=== PATIENT | female | born 1990 | race Two or more races ===

== ENCOUNTER 2017-04-24 14:14 | Emergency (ER) | payer OTHER, MEDICAID ==
[2017-04-24 14:31] LABS: URINE HCG POC HCG NEGATIVE (Negative)
[2017-04-24 14:37] LABS: ADD MAN DIFF? NO
[2017-04-24 14:40] LABS: BASO % 0 % (0-3); EOS # 0.1 x10^3/uL (0.0-0.7); EOS % 1 % (0-3); HEMATOCRIT 37.4 % (36.0-47.0); HEMOGLOBIN 12.5 g/dL (12.0-15.5); LYMPH # 2.8 x10^3/uL (1.0-4.8); LYMPH % 33 % (24-48); MEAN CORPUSCULAR HEMOGLOBIN 28 pg (25-35); MEAN CORPUSCULAR HGB CONC 33 g/dL (31-37); MEAN CORPUSCULAR VOLUME 83 fL (79-100); MONO # 0.6 x10^3/uL (0.0-1.1); MONO % 8 % (0-9); NEUT # 4.9 x10^3uL (1.8-7.7); NEUT % 58 % (31-73); PLATELET COUNT 265 x10^3/uL (140-400); RED CELL DISTRIBUTION WIDTH 13.7 % (11.5-14.5); WHITE BLOOD COUNT 8.5 x10^3/uL (4.0-11.0)
[2017-04-24 14:41] LABS: BILIRUBIN,URINE NEGATIVE (NEG); CLARITY,URINE CLEAR; COLOR,URINE YELLOW; GLUCOSE,URINE NEGATIVE (NEG); NITRITE,URINE NEGATIVE (NEG); PH,URINE 5.5; PROTEIN,URINE NEGATIVE (NEG-TRACE); UROBILINOGEN,URINE 0.2 mg/dL (0.2 mg/dL)
[2017-04-24 14:49] LABS: BACTERIA,URINE FEW /HPF (0-FEW); SQUAMOUS EPITHELIAL CELL,UR MANY /LPF
[2017-04-24 14:50] LABS: ANION GAP 9 (6-14); BLOOD UREA NITROGEN 16 mg/dL (7-20); BUN/CREATININE RATIO 18 (6-20); CALCIUM 8.4 mg/dL (8.5-10.1); CARBON DIOXIDE 28 mmol/L (21-32); CHLORIDE 105 mmol/L (98-107); CREATININE 0.9 mg/dL (0.6-1.0); GFR 74.6; GLUCOSE 121 mg/dL (70-99); POTASSIUM 3.6 mmol/L (3.5-5.1); SODIUM 142 mmol/L (136-145)
[2017-04-24 14:56] LABS: ALBUMIN 3.5 g/dL (3.4-5.0); ALBUMIN/GLOBULIN RATIO 0.9 (1.0-1.7); ALK PHOS 90 U/L (46-116); ALT (SGPT) 31 U/L (14-59); AST (SGOT) 28 U/L (15-37); LIPASE 135 U/L (73-393); TOTAL BILIRUBIN 0.3 mg/dL (0.2-1.0); TOTAL PROTEIN 7.2 g/dL (6.4-8.2)
[2017-04-24] MEDS ORDERED: CONTRAST GIVEN MC ×2 (15:15)
[2017-04-24] MEDS: IOHEXOL 300 MG/ML 100ML VIAL. IV ×2 (15:16)
[2017-04-24] MEDS: ONDANSETRON PF 4 MG/2 ML VIAL. IV ×2 (15:46)
[2017-04-25 13:22] LABS: CHLAMYDIA PROBE Negative (Negative); GC PROBE Negative (Negative)
== END 2017-04-24 16:53 | disposition home or self-care (01) ==
LOC: ER 14:14
DX: N20.1 Calculus of ureter (principal)
CPT/HCPCS: 36415; 74177; 76830; 76856; 80053; 81001; 81025; 83690; 85025; 87086; 87491; 87591; 96374; 99285-25; J2405; Q0111; Q9967

== ENCOUNTER 2017-10-23 16:19 | Emergency (ER) | payer OTHER ==
[~2017-10-23] VITALS: Ht 157.5 cm; Wt 56.7 kg
[~2017-10-23 16:19] MED LIST: IBUP-1060 PO; ONDA4TAB10 PO; OXYC-323 PO; TAMS0.4C97 PO
--- NOTE | 2017-10-23 16:40 | PHYS DOC ---
Past Medical History Past Medical History: No Pertinent History Past Surgical History: No Surgical History Alcohol Use: Rarely Drug Use: None Adult General Chief Complaint Chief Complaint: HEADACHE HPI HPI Patient is a 27 year old female with history of migraine headaches who presents today complaining of a 9 out of 10 left sided to frontal migraine headache that began at noon today. Patient states the migraine headache began gradually. Patient is also complaining of an episode of vomiting and nausea. Patient denies this being the worst headache in her her life. Denies any fever. Denies any vision changes. Denies any neck pain. She has not taken anything to relieve her pain. Review of Systems Review of Systems Constitutional: Denies fever or chills [] Eyes: Denies change in visual acuity, redness, or eye pain [] HENT: Denies nasal congestion or sore throat [] Respiratory: Denies cough or shortness of breath [] Cardiovascular: No additional information not addressed in HPI [] GI: Denies abdominal pain, nausea, vomiting, bloody stools or diarrhea [] : Denies dysuria or hematuria [] Musculoskeletal: Denies back pain or joint pain [] Integument: Denies rash or skin lesions [] Neurologic: Reports migraine headache, denies focal weakness or sensory changes [] All other systems were reviewed and found to be within normal limits, except as documented in this note. Current Medications Current Medications Current Medications Medications (Trade) Dose Ordered Sig/Celio Start Time Stop Time Status Last Admin Dose Admin Diphenhydramine HCl (Benadryl) 25 mg 1X ONCE 10/23/17 17:15 10/23/17 17:16 DC 10/23/17 17:06 25 MG Ketorolac Tromethamine (Toradol Im) 60 mg 1X ONCE 10/23/17 17:15 10/23/17 17:16 DC 10/23/17 17:10 60 MG Promethazine HCl (Phenergan Im) 25 mg 1X ONCE 10/23/17 17:15 10/23/17 17:16 DC 10/23/17 17:07 25 MG Allergies Allergies Allergies Coded Allergies Type Severity Reaction Last Updated Verified No Known Drug Allergies 02/20/15 No Physical Exam Physical Exam Constitutional: Well developed, well nourished, no acute distress, non-toxic appearance. [] HENT: Normocephalic, atraumatic, bilateral external ears normal, oropharynx moist, no oral exudates, nose normal. [] Eyes: PERRLA, EOMI, conjunctiva normal, no discharge. [] Neck: Normal range of motion, no tenderness, supple, no stridor. [] Cardiovascular:Heart rate regular rhythm, no murmur [] Lungs & Thorax: Bilateral breath sounds clear to auscultation [] Abdomen: Bowel sounds normal, soft, no tenderness, no masses, no pulsatile masses. [] Skin: Warm, dry, no erythema, no rash. [] Back: No tenderness, no CVA tenderness. [] Extremities: No tenderness, no cyanosis, no clubbing, ROM intact, no edema. [] Neurologic: Alert and oriented X 3, normal motor function, normal sensory function, no focal deficits noted. Cranial nerves II through XII intact Psychologic: Affect normal, judgement normal, mood normal. [] Current Patient Data Vital Signs Vital Signs Date Time Temp Pulse Resp B/P (MAP) Pulse Ox O2 Delivery O2 Flow Rate FiO2 10/23/17 16:30 97.6 81 16 109/54 (72) 98 Room Air 97.6 Lab Values Laboratory Tests Test 10/23/17 16:39 10/23/17 16:46 Urine Collection Type Unknown Urine Color Yellow Urine Clarity Clear Urine pH 8.0 Urine Specific [place] >=1.030 Urine Protein Negative mg/dL (NEG-TRACE) Urine Glucose (UA) Negative mg/dL (NEG) Urine Ketones (Stick) >=80 mg/dL (NEG) Urine Blood Trace (NEG) Urine Nitrite Negative (NEG) Urine Bilirubin Negative (NEG) Urine Urobilinogen Dipstick 0.2 mg/dL (0.2 mg/dL) Urine Leukocyte Esterase Small (NEG) Urine RBC Occ /HPF (0-2) Urine WBC Occ /HPF (0-4) Urine Squamous Epithelial Cells Few /LPF Urine Bacteria Few /HPF (0-FEW) Urine Mucus Mod /LPF POC Urine HCG, Qualitative Hcg negative (Negative) EKG EKG [] Radiology/Procedures Radiology/Procedures [] Course & Med Decision Making Course & Med Decision Making Pertinent Labs and Imaging studies reviewed. (See chart for details) This is a 27-year-old male patient presented to the ED today complaining of a headache consistent with her migraine headaches that began at noon. Also complaining of nausea also vomited once. Given migraine cocktail in the ED, feeling better.Discharged with Imitrex and promethazine. F/u with her own PCP or neurologist in the course of this week or next week. Provided return precautions and discharged in stable condition. Dragon Disclaimer Dragon Disclaimer This electronic medical record was generated, in whole or in part, using a voice recognition dictation system. Departure Departure Impression: Primary Impression: Migraine headache Disposition: HOME, SELF-CARE Condition: STABLE Referrals: NO PCP (PCP) AMOL LEE MD follow up in one week Patient Instructions: Migraine Headache Additional Instructions: You were evaluated for migraine headaches. We recommend medications to use at home as needed. Take them as prescribed. Follow-up with your own doctor the provided neurologist in the next 7-14 days if symptoms continue. Come back to the ED at any point symptoms worsen. Scripts Promethazine Hcl (PROMETHAZINE HCL) 25 Mg Tablet 1 TAB PO PRN Q6HRS, #20 TAB Prov: JOSE GRIFFITH APRN 10/23/17 Sumatriptan Succinate (IMITREX) 50 Mg Tablet 1 TAB PO UD, #9 TAB 1 Refill Prov: JOSE GRIFFITH APRN 10/23/17 Problem Qualifiers Primary Impression: Migraine headache Migraine type: unspecified Status migrainosus presence: without status migrainosus Intractability: not intractable Qualified Codes: G43.909 - Migraine, unspecified, not intractable, without status migrainosus JOSE GRIFFITH APRN Oct 23, 2017 16:40
[2017-10-23 16:58] LABS: BILIRUBIN,URINE NEGATIVE (NEG); CLARITY,URINE CLEAR; COLOR,URINE YELLOW; NITRITE,URINE NEGATIVE (NEG); PROTEIN,URINE NEGATIVE (NEG-TRACE); UROBILINOGEN,URINE 0.2 mg/dL (0.2 mg/dL)
[2017-10-23] MEDS: diphenhydrAMINE 50 MG/ML VIAL IM ONE (17:06)
[2017-10-23] MEDS: PROMETHAZINE IM 25 MG/ML VIAL IM ONE (17:07)
[2017-10-23] MEDS: KETOROLAC 60 MG/2 ML INJ. IM ONE (17:10)
[2017-10-23 17:11] LABS: RBC,URINE OCC /HPF (0-2)
[2017-10-23 17:12] LABS: BACTERIA,URINE FEW /HPF (0-FEW); SQUAMOUS EPITHELIAL CELL,UR FEW /LPF; WBC,URINE OCC /HPF (0-4)
[2017-10-23] MEDS ORDERED: SUMA50TA3 PO (17:22)
[2017-10-23] MEDS ORDERED: PROM25TA10 PO (17:22)
[2017-10-23 17:32] VITALS: BP 104/56
== END 2017-10-23 17:35 | disposition home or self-care (01) ==
LOC: ER 16:19
DX: G43.909 Migraine, unspecified, not intractable, without status migrainosus (principal)
CPT/HCPCS: 81001; 81025; 96372; 99284; J1200; J1885; J2550

== ENCOUNTER → 2018-06-06 | Outpatient (CLI) | payer OTHER ==
[~2018-06-06] MED LIST changes: -OXYC-323 PO; +OXYC1TAB15 PO; +PROM25TA10 PO; +SUMA50TA3 PO
--- NOTE | 2018-06-06 15:22 | RAD ---
EXAM: Obstetrics sonogram. HISTORY: Uterine size and dates discrepancy. TECHNIQUE: Sonographic imaging of a gravid uterus was performed. COMPARISON: None. FINDINGS: There is a single intrauterine fetus in variable presentation with a heart rate of 139 bpm. There is body motion. The stomach, kidneys, bladder, spine, brain, facial profile and extremities are unremarkable. A four-chamber heart is difficult to visualize due to presentation and motion. There is a three-vessel umbilical cord with normal insertion. There is an anterior placenta without evidence of placenta previa. The anatomic fluid index is normal at 10.3 cm. The cervix is closed and measures 5.0 cm in length. There is a suspected uterine contraction during the exam, an incidental finding. The biparietal diameter is 3.33 cm, corresponding with 16 weeks and 2 days. The head circumference is 12.34 cm, corresponding with 16 weeks and 1 day. The abdominal circumference is 10.18 cm, corresponding with 16 weeks and 1 day. The femoral length is 2.07 cm, corresponding with 16 weeks and 1 day. The estimated gestational age patient combined ultrasound measurements is 16 weeks and 1 day and the estimated due date is 11/20/2018. The estimated weight is 148 g. IMPRESSION: 1. Single intrauterine fetus with an estimated gestational age based on ultrasound measurements of 16 weeks and 1 day. The estimated gestational age based on LMP is 16 weeks and 4 days. 2. Suboptimal evaluation of the heart due to presentation, motion and early gestational age. Follow-up evaluation at approximately 18-20 weeks gestation can be performed to complete an otherwise unremarkable anatomy survey. Electronically signed by: Jihan Miguel MD (06/06/2018 3:19 PM) [place] [id number]
== END | disposition home or self-care (01) ==
LOC: US 13:31
PROVIDERS: ATTEND Obstetrics & Gynecology
DX: O26.842 Uterine size-date discrepancy, second trimester (principal); Z3A.16 16 weeks gestation of pregnancy
CPT/HCPCS: 76805